=== PATIENT | female | born 2000 | race African-American/Black ===

== ENCOUNTER → 2022-04-02 16:20 | Outpatient (CLI) | payer OTHER, MEDICAID, SELFPAY ==
--- NOTE | 2022-04-02 16:24 | DI.US.S_ITS ---
PROCEDURE: US OB >= 14 WEEKS FETUS INDICATIONS: Anatomy scan OUTSIDE/PRIOR DATING DATA: Last menstrual period (LMP): Not available. LMP-based estimated date of delivery (SAMARIA): Not available. First dating scan (date and location): 01/01/2022 at . Estimated date of delivery (SAMARIA) from first dating scan: 08/20/2022. The calculations are made using the working SAMARIA of . TECHNIQUE: Real-time scanning was performed of the fetus, with image documentation and biometric measurements. Endovaginal scanning: Not performed COMPARISON: None. FINDINGS: General: A single living intrauterine gestation is present. Presentation: Vertex. Placenta: Placental position is posterior , without previa. Amniotic fluid index: 17.8 cm, normal range is 5-24 cm. Single deepest vertical pocket is 6.0 cm. heart rate: 141 beats per minute. Maternal cervical canal: 3.5 cm long. Normal lower limit is 2.5 cm. biometrics: Biparietal diameter: 20 weeks 3 days Head circumference: 19 weeks 4 days Abdominal circumference: 20 weeks 0 day Femur length: 20 Weeks 0 day Clinically estimated gestational age: 20 weeks 0 day Composite gestational age from present scan: 20 weeks 0 day Estimated weight and percentile: 326 g; 45% Anatomic survey: Neuro: Ventricles are non-dilated at less than 10 mm. Cisterna magna is normal at 3-11 mm. Cerebellum is normal in size and morphology. Nuchal skin fold: Normal at less than 6 mm between 14-21 weeks gestational age. Face: Nose and lips, facial profile are normal. Spine: No evidence for spina bifida. Heart: 4-chambered heart is present, with normal ventricular outflow tracts. There is a echogenic focus in left ventricle. Diaphragm: Diaphragm is intact. Stomach: Left-sided stomach is present. Kidneys: No hydronephrosis. Normal is less than 5 mm in 2nd trimester, less than 7 mm in 3rd trimester. Cord: 3-vessel cord has orthotopic insertion. Bladder: Normal in size. Extremities: All 4 extremities identified. IMPRESSION: 1. A single living intrauterine gestation with appropriate interval growth. 2. An echogenic focus in the left ventricle. As an isolated finding, this is most likely a normal variant. Please correlate with other screening tests. 3. Otherwise normal anatomic survey. We strive to produce accurate, complete, and clear reports of imaging services. To assist us in improving patient care, this report was composed using standard report templates and voice recognition software. Therefore, it may contain abnormal punctuation, insertions and/or omissions. Occasional wrong-word or sound-alike substitutions may occur. Though we review the report and make efforts to correct it, we do recommend that the report be read carefully in proper context to recognize any text inaccuracies. Dictated by: Donny Fairchild M.D. on 04/07/2022 at 12:05 Approved by: Donny Fairchild M.D. on 04/07/2022 at 12:10
== END ==
PROVIDERS: Referring Provider Midwife; Visit Provider Midwife
DX: Z36.89 Encounter for other specified antenatal screening (principal); Z3A.20 20 weeks gestation of pregnancy
CPT/HCPCS: 76811

== ENCOUNTER 2022-06-01 16:45 | Outpatient (CLI) | payer OTHER, MEDICAID, SELFPAY ==
--- NOTE | 2022-06-01 17:41 | P.TNLD_ITS ---
Visit Information Visit Information Date of evaluation: 06/01/22 Primary OB Provider: Kerry Latham On-call OB Provider: Shawna Nichols Reason for Evaluation: Yes rupture of membranes Comments/Additional reasons for admission: 21 year old at 28 weeks gestation sent in my her surgical dental assistant due to concern for leaking of fluid. Denies contractions or bleeding and reports FM. Vital Signs Vital Signs: T 36.8 BP 111/66 P 76 Evaluation Evaluation Baseline heart rate: 130 Variability: Moderate (11-25) monitor accelerations: Present Monitor Decelerations: Absent Uterine Contraction Intensity: Mild Category of Tracing: Reactive Non-invasive Membranes Rupture Test: negative Diagnosis, Plan/Disposition Final Diagnosis (1) 28 weeks gestation of : Status: Acute Plan/Disposition Plan: 21 year old at 28 weeks gestation with concern for rupture of membranes. Amnisure negative, NST reactive. She initially had mild contractions on the monitor which she could not feel. Contractions ceased after hydration. F/u with surgical dental assistant or return prn. OB Disposition: home
== END 2022-06-01 17:45 | disposition home or self-care (01) ==
LOC: OB 06-06 17:05
PROVIDERS: Referring Provider Family Medicine; Visit Provider Family Medicine
DX: Z03.71 Encounter for suspected problem with amniotic cavity and membrane ruled out (principal); O47.03 False labor before 37 completed weeks of gestation, third trimester; Z3A.28 28 weeks gestation of pregnancy
CPT/HCPCS: 59025; 84112; G0378; G0379

== ENCOUNTER → 2022-08-28 06:38 | Outpatient (CLI) | payer OTHER, MEDICAID, SELFPAY ==
--- NOTE | 2022-08-28 | DI.US.S_ITS ---
PROCEDURE: US OB LIMITED INDICATIONS: [place] OUTSIDE/PRIOR DATING DATA: Last menstrual period (LMP): Unknown. LMP-based estimated date of delivery (SAMARIA): Unknown. First dating scan (date and location): 01/01/2022. Estimated date of delivery (SAMARIA) from first dating scan: 08/20/2022. The calculations are made using the ultrasound SAMARIA of 08/20/2022. TECHNIQUE: Real-time scanning was performed of the fetus, with image documentation. COMPARISON: [facility], US, US OB GROWTH, 07/10/2022, 14:41. FINDINGS: General: A single living intrauterine gestation is present. Presentation: Vertex. Placenta: Placental position is fundal left, without previa. Placenta is heterogeneous. Amniotic fluid index: 6.5 cm, normal range is 5-24 cm. Single deepest vertical pocket is 3.3 cm. heart rate: 139 beats per minute. Maternal cervical canal: Not well seen. Estimated gestational age from initial scan: 41 weeks 1 day. IMPRESSION: 1. [place] living intrauterine at 41 weeks 1 day based on prior dating. Vertex position. heart rate 139 bpm. 2. Normal amniotic fluid. Placenta is heterogeneous. We strive to produce accurate, complete, and clear reports of imaging services. To assist us in improving patient care, this report was composed using standard report templates and voice recognition software. Therefore, it may contain abnormal punctuation, insertions and/or omissions. Occasional wrong-word or sound-alike substitutions may occur. Though we review the report and make efforts to correct it, we do recommend that the report be read carefully in proper context to recognize any text inaccuracies. Dictated by: Ken Christianson M.D. on 08/28/2022 at 8:44 Approved by: Ken Christianson M.D. on 08/28/2022 at 8:49
== END ==
PROVIDERS: Referring Provider Midwife; Visit Provider Midwife
DX: O48.0 Post-term pregnancy (principal); Z3A.41 41 weeks gestation of pregnancy
CPT/HCPCS: 76815